=== PATIENT | female | born 1990 | race Caucasian/White ===

== ENCOUNTER 2016-10-27 16:40 | Inpatient (IN) | payer OTHER ==
[~2016-10-27] VITALS: Ht 162.6 cm; Wt 81.0 kg
[2016-10-27 16:53] VITALS: BP 137/82
--- NOTE | 2016-10-27 18:01 | HPEPDOC ---
Obstetrical History & Physical General Date of Admission Oct 27, 2016 at 16:40 History of Present Illness 25 y//o at 38+0 being watched closely for the last week with borderline ESTHELA and known CHTN with meds (Labetalol 100 BID). Today had decr'd FM and rescan was 4.5 cm with 3 quad's each 1.5 cm. No VB/LOF. Chief Complaint: Induction of labor Information Provided By: Patient Care Care: Good Care Dating Final EDC by: LMP, 1st trimester (US) Antepartum Course Diagnos(e)s CHTN on Labetalol 100 BID started at 15 weeks. BL proteinuria was 101.5. Has not quit smoking, still smoking a few cigs only on most days Past Medical History Past Obstetrical History : Past Obstetrical History: Primgravida Past Medical History Medical History CHTN Surgical History: [place] teeth Family History Significant Family History: No pertinent family hx Social History Marital Status: Family situation: Spouse/partner home Psychosocial History: No pertinent psych hx * Smoker: current smoker (few/day but not every day) Alcohol: Denies Drugs: denies Abuse Violence Screening Have you been hit/kicked/slapp: No Have you been sexually assault: No Imunizations Tdap status: current Influenza Status: current Allergies Coded Allergies: No Known Allergies (Unverified , 10/27/16) Physical Examination Physical Examination GENERAL: Alert and oriented times three. ABDOMEN: Gravid and non-tender to touch. FETUS: vertex (VTX) by sterile vaginal examination, Cx 1/50/-3/membranes swept EXTREMITIES: No edema. Vital Signs/I&O Vital Signs Date Time Temp Pulse Resp B/P (MAP) Pulse Ox O2 Delivery O2 Flow Rate FiO2 10/27/16 16:53 97.6 122 18 137/82 (100) Room Air Laboratory Data 24H LABS Laboratory Tests 2 10/27/16 17:05: Serology Scanned Report Hepatitis B Testing Urine Culture: Contaminated Pertinent Laboratoy Data Blood Type: O+ RBC Antibody Screen: Negative HIV: Negative Hepatitis B: Negative Hepatitis C: Unknown Rapid Plasma Reagin: Nonreactive Rubella: Immune Varicella: Immune Chlamydia/Gonorrhea: Negative Group B Streptococcus: Negative Quad Screen Test: Declined Cystic Fibrosis: Declined Glucose Tolerance Test: 107 Anatomy Ultrasound Placenta Location: Posterior Normal Anatomy: Yes Placenta Previa: No Other Ultrasounds 1MAR anatomy scan nl 20APR grth 57%ile 17MAY grth 76%ile 12JUN grth 60%ile Steroid Therapy Steroid Therapy: No Assessment Variability: Moderate Accelerations: Positive Decelerations: None Tocometer Contractions: No Assessment/Plan Assessment CHTN with meds and now oligohydramnios at 38+0 wks. IOL indicated. NST Cat 1. Unfavorable cx. GBS neg Plan Admit and orient. Ux Ui Designer and consent. Diet: clrs Labs and intravenous (IV) per unit protocol. Counseled on Pitocin and induction of labor (IOL). Lactated Ringers (LR): 125 mL/hr. Bolus prior to epidural Anticipate normal spontaneous delivery () C-S as appropriate. Cytotec 50 mcg q 4 hrs prn per SOP. Sessions MD HOLT,JOHNNA Barnes MD Oct 27, 2016 18:01
[2016-10-27] MEDS: LR 1,000 ML IV SCH (18:19)
[2016-10-27] MEDS: miSOPROStol 50 MCG 1/2 TAB (S0191) PO PRN ×2 (18:20→22:22)
[2016-10-27 18:39] LABS: MEAN CORPUSCULAR HEMOGLOBIN 26.9 pg (27.0-33.0); MEAN CORPUSCULAR VOLUME 81.4 fl (80.0-96.0); RED CELL DISTRIBUTION WIDTH 13.5 % (11.5-14.5); WHITE BLOOD COUNT 21.2 K/mm3 (4.0-10.0)
[2016-10-27 19:12] LABS: MEAN CORPUSCULAR HEMOGLOBIN 27.4 pg (27.0-33.0); MEAN CORPUSCULAR HGB CONC 33.3 g/dl (32.0-36.5); MEAN CORPUSCULAR VOLUME 82.3 fl (80.0-96.0); RED CELL DISTRIBUTION WIDTH 13.6 % (11.5-14.5); WHITE BLOOD COUNT 15.7 K/mm3 (4.0-10.0)
[2016-10-27 21:25] VITALS: BP 106/56
[2016-10-28] VITALS (26 sets, daily range): BP systolic 121–173; BP diastolic 59–91
[2016-10-28] MEDS ORDERED: NALBUPHINE HCL 10 MG/ML AMP (J2300) IM ONE (01:30)
[2016-10-28] MEDS ORDERED: PROMETHAZINE INJ 25 MG/ML VIAL (J2550) IV ONE (01:30)
[2016-10-28] MEDS ORDERED: NALBUPHINE HCL 10 MG/ML AMP (J2300) IV ONE (01:30)
--- NOTE | 2016-10-28 01:37 | IPNPDOC ---
Text Note Date of Service The patient was seen on 10/28/16. NOTE S/P cytotec X2 nst cat 1. Pain 11/10. Cx /-2 Desires pain meds Nubain 20 mg split IM/IV, Phen 25 mg IV Third dose miso due in an hour, OK if not mateus too much Desires eventual epidural. Recheck in ~4 hrs, sooner prn. Sessions VS,Shon, I+O VSShon I+O Laboratory Tests 10/27/16 18:13 Red Blood Count 2.56 L, Mean Corpuscular Volume 81.4, Mean Corpuscular Hemoglobin 26.9 L, Mean Corpuscular Hemoglobin Concent 33.0, Red Cell Distribution Width 13.5 10/27/16 19:05 Red Blood Count 3.91 L, Mean Corpuscular Volume 82.3, Mean Corpuscular Hemoglobin 27.4, Mean Corpuscular Hemoglobin Concent 33.3, Red Cell Distribution Width 13.6 Vital Signs Date Time Temp Pulse Resp B/P (MAP) Pulse Ox O2 Delivery O2 Flow Rate FiO2 10/27/16 21:25 97.6 82 16 106/56 (73) 10/27/16 16:53 Room Air SESSIONS,JOHNNA Barnes MD Oct 28, 2016 01:37
[2016-10-28] MEDS: LR 1,000 ML IV SCH ×2 (01:54→15:13)
[2016-10-28] MEDS: miSOPROStol 50 MCG 1/2 TAB (S0191) PO PRN ×2 (03:34→10:53)
--- NOTE | 2016-10-28 06:41 | IPNPDOC ---
Text Note Date of Service The patient was seen on 10/28/16. NOTE NST Cat1, last dose cytotec 0330 Good pain relief with the Nub/Phen Cx unchanged Cytotec rpt dose at 0730 Plan d/w RN SBAR to Renee at 0730 Sessions MD DONG,Shon, I+O VSShon, I+O Laboratory Tests 10/27/16 18:13 Red Blood Count 2.56 L, Mean Corpuscular Volume 81.4, Mean Corpuscular Hemoglobin 26.9 L, Mean Corpuscular Hemoglobin Concent 33.0, Red Cell Distribution Width 13.5 10/27/16 19:05 Red Blood Count 3.91 L, Mean Corpuscular Volume 82.3, Mean Corpuscular Hemoglobin 27.4, Mean Corpuscular Hemoglobin Concent 33.3, Red Cell Distribution Width 13.6 Vital Signs Date Time Temp Pulse Resp B/P (MAP) Pulse Ox O2 Delivery O2 Flow Rate FiO2 10/28/16 05:20 97.9 82 125/59 (81) 10/28/16 03:30 16 10/27/16 16:53 Room Air SESSIONS,JOHNNA Barnes MD Oct 28, 2016 06:41
[2016-10-28] MEDS ORDERED: FAMOTIDINE 20 MG TAB PO SCH (09:00)
[2016-10-28] MEDS ORDERED: FENTANYL 2MCG/ML ROPIVACAINE 0.2% IN 0.9% NACL 200ML IVBAG As Ordered ONE (14:43)
[2016-10-28] MEDS ORDERED: OXYTOCIN 30 UNITS IN 0.9% NaCl 500ML IV BAG (J2590) As Ordered ONE (14:54)
[2016-10-28] MEDS ORDERED: REFRIGERATOR IV KEYS XX PRN (15:30)
[2016-10-28] MEDS ORDERED: ONDANSETRON 4MG/2ML VIAL (J2405) IV PRN (15:30)
[2016-10-28] MEDS ORDERED: FENTANYL/ROPIVACAINE/NACL BAG 200 ML EPIDURAL SCH (15:30)
[2016-10-28] MEDS ORDERED: ePHEDrine SULFATE 25 MG/5 ML(5MG/ML) SYRINGE IV PRN (15:30)
[2016-10-28] MEDS ORDERED: EPIDURAL COMMENT XX SCH (15:30)
[2016-10-28] MEDS ORDERED: NALOXONE INJ 0.4 MG/1 ML VIAL (J2310) IV PRN (15:30)
[2016-10-28] MEDS ORDERED: diphenhydrAMINE INJ 50MG/ML VIAL (J1200) IV PRN (15:30)
[2016-10-28] MEDS ORDERED: EPIDURAL/PCA KEYS XX PRN (15:30)
[2016-10-28] MEDS ORDERED: DIBUCAINE 1% OINTMENT 30GM TOP PRN (19:45)
[2016-10-28] MEDS ORDERED: METHYLERGONOVINE MALEATE 0.2 MG TAB PO PRN (19:45)
[2016-10-28] MEDS ORDERED: DOCUSATE SODIUM 100 MG CAP PO PRN (19:45)
[2016-10-28] MEDS ORDERED: ACETAMINOPHEN 500 MG TAB PO PRN (19:45)
[2016-10-28] MEDS ORDERED: diphenhydrAMINE 50 MG CAP PO PRN (22:00)
[2016-10-28] MEDS: LABETALOL 100 MG TAB PO SCH (22:19)
[2016-10-29] MEDS: IBUPROFEN 800 MG TAB PO PRN ×2 (04:21→14:49)
[2016-10-29 05:54] VITALS: BP 113/58
[2016-10-29] MEDS: LABETALOL 100 MG TAB PO SCH ×2 (09:24→21:15)
[2016-10-29] MEDS: PRENATAL VITAMINS CHEWABLE TABLET PO SCH (09:24)
[2016-10-29 18:00] VITALS: BP 139/76
[2016-10-30] MEDS: IBUPROFEN 800 MG TAB PO PRN (05:19)
[2016-10-30 05:51] VITALS: BP 127/76
[2016-10-30 09:31] VITALS: BP 135/91
[2016-10-30] MEDS: LABETALOL 100 MG TAB PO SCH (09:31)
[2016-10-30] MEDS: PRENATAL VITAMINS CHEWABLE TABLET PO SCH (09:32)
[2016-10-30] MEDS ORDERED: PRENTAB9 PO (10:09)
[2016-10-30] MEDS ORDERED: LABE10TAB PO (10:12)
[2016-10-30] MEDS ORDERED: ACET50TA PO (10:13)
[2016-10-30] MEDS ORDERED: IBUP-1114 PO (10:14)
[2016-10-30] MEDS ORDERED: COLA100C5 PO (10:15)
[2016-10-30] MEDS ORDERED: DIBU10OI TOP (10:16)
--- NOTE | 2016-10-30 15:47 | DSES ---
DATE OF ADMISSION: 10/27/2016 DATE OF DISCHARGE: 10/30/2016 This lady is a 25-year-old 1, now para 1 admitted for induction of labor at 38 weeks and 1 day of gestation because of oligohydramnios and chronic hypertension on labetalol. She had a spontaneous vaginal delivery with epidural in place, female weighing 6 pounds, 3 ounces, 2808 grams, scores of 9 and 9 at one and five minutes respectively. Her admitting hemoglobin was 6.9, hematocrit 20.8, and platelets were 528. Discharge hemoglobin 10.7, hematocrit 32.2 and platelets are 364. Her blood pressure on discharge is 127/76, respirations 18, pulse 80, temperature 98.0. We discussed phlebitis, cystitis, mastitis, endometritis and cellulitis, diet, exercise, pain management, perineal, breast and wound care. On discharge, she is normocephalic, atraumatic. Neck: Full range of motion. Pupils are equal and reactive to light. Chest is clear bilaterally to bases. No wheezes or rhonchi. No costovertebral angle (CVA) tenderness. Uterus two below. Lochia is moderate. Perineum is healing. There is no rashes, lesions or pruritus. No arthralgia or myalgia. No complaints of cough, wheezes, shortness of breath or dyspnea on exertion. No chest pain, not bleeding. Neurologically complete. No incontinency, urgency or frequency. No nausea, vomiting, diarrhea or constipation. No diabetic issues. No SCREW MACHINE HAND issues. She does have chronic hypertension, on labetalol. She does not smoke, drink or abuse drugs and there is no domestic violence. In summary, we have a term gestation, delivered a live female to be discharged on her medications to followup in one week in the office for a blood pressure check and six weeks for a check. She was given medications on discharge. Baby and mother are stable, doing well, breast-feeding.
== END 2016-10-30 11:30 | disposition home or self-care (01) | DRG 774 ==
LOC: M LDI 16:40 → M OBS 10-28 20:45
PROVIDERS: ADMIT Obstetrics & Gynecology; ATTEND Obstetrics & Gynecology
PROC: 3E0P7GC Introduction of Other Therapeutic Substance into Female Reproductive, Via Natural or Artificial Opening (ICD-10-PCS; 2016-10-27)
PROC: 10E0XZZ Delivery of Products of Conception, External Approach (ICD-10-PCS; principal; 2016-10-28)
DX: O41.03X0 Oligohydramnios, third trimester, not applicable or unspecified (principal); O10.02 Pre-existing essential hypertension complicating childbirth; Z37.0 Single live birth; Z3A.38 38 weeks gestation of pregnancy; O69.82X0 Labor and delivery complicated by other cord entanglement, without compression, not applicable or unspecified

== ENCOUNTER → 2017-11-24 | Outpatient (REF) | payer OTHER | LOC: M SFHCLERA 17:53 | DX: J02.9 Acute pharyngitis, unspecified (principal) ==